=== PATIENT | female | born 1960 | race Caucasian/White ===

== ENCOUNTER 2019-06-07 08:44 | Emergency (ER) | payer BC ==
[~2019-06-07] VITALS: Ht 162.6 cm; Wt 72.6 kg
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
--- NOTE | 2019-06-07 08:54 | NUR ---
ERMD at bedside for MSE
--- NOTE | 2019-06-07 09:13 | NUR ---
pt taken to Radiology dept. for CT scan
--- NOTE | 2019-06-07 09:26 | NUR ---
pt back from CT scan
[2019-06-07] MEDS ORDERED: HYDROCODONE/APAP 5-325MG TABLET ONE (09:27)
[2019-06-07] MEDS: HYDROCODONE/APAP 5-325MG TABLET PO ONE (09:29)
--- NOTE | 2019-06-07 09:44 | NUR ---
[facility] AT BEDSIDE SPEAKING TO PATIENT
--- NOTE | 2019-06-07 10:07 | NUR ---
Patient discharged to home in stable conditon. Written and verbal after care instructions given. Patient verbalizes understanding of instructions. ambulating with steady gait. family at waiting area to drive patient home
[2019-06-07 10:08] VITALS: BP 118/82
== END 2019-06-07 10:08 | disposition home or self-care (01) ==
LOC: ER 08:44
DX: S13.4XXA Sprain of ligaments of cervical spine, initial encounter (principal); R07.89 Other chest pain; E78.5 Hyperlipidemia, unspecified; Z88.1 Allergy status to other antibiotic agents; V43.52XA Car driver injured in collision with other type car in traffic accident, initial encounter; Y93.89 Activity, other specified; Y92.410 Unspecified street and highway as the place of occurrence of the external cause; Y99.8 Other external cause status
CPT/HCPCS: 71045; 72125; 93005; A4663